=== PATIENT | female | born 1955 | race Caucasian/White ===

== ENCOUNTER 2018-12-23 11:54 | Inpatient (IN) ==
--- NOTE | 2018-12-23 09:09 | Discharge Summary ---
<Joshua Roberson M - Last Filed: 12/23/18 09:07> Date of Encounter: 12/23/18 - Discharge Diagnosis (1) Diabetes mellitus Priority: Secondary Status: Chronic Qualifiers: Diabetes mellitus type: type 2 Diabetes mellitus watermaster insulin use: with mcfp use Diabetes mellitus complication status: with other specified complication Qualified Code(s): E11.69 - Type 2 diabetes mellitus with other specified complication; Z79.4 - skilled nursing (current) use of insulin (2) GERD (gastroesophageal reflux disease) Priority: Secondary Status: Chronic Qualifiers: Esophagitis presence: esophagitis presence not specified Qualified Code(s): K21.9 - Gastro-esophageal reflux disease without esophagitis (3) Arthritis of right hip Priority: Primary Status: Chronic (4) Status post right hip replacement Priority: Primary Status: Acute - Hospital Course Hospital course: Ms. Braun is a 63 year old female - Time Spent with Patient Total time spent providing and/or coordinating discharge services: - Discharge Medications Prescriptions: New Aspirin Enteric Coated [Aspirin EC] 325 mg PO DAILY 10 Days #20 tablet. Docusate [Colace] 100 mg PO BID 5 Days #10 capsule OxyCODONE Immed Rel [Roxicodone 5 MG] 5 mg PO Q6HR PRN 5 Days #20 tablet PRN Reason: Severe Pain Continued Ergocalciferol (VITAMIN D2) [Vitamin D2] 50,000 unit PO QWEEK Calcium Carbonate [Calcium] 600 mg PO DAILY Omeprazole [PriLOSEC] 20 mg PO DAILY Meloxicam 15 mg PO DAILY Insulin Glargine [Lantus] 35 unit SQ BID Simvastatin [Zocor] 20 mg PO HS Metformin HCl 1,000 mg PO BID Gabapentin 600 mg PO TID Paroxetine HCl [Paroxetine Cr] 37.5 mg PO DAILY Multivitamin [One Daily Multivitamin] 1 tab PO DAILY Discontinued Aspirin [Lo-Dose Aspirin EC] 81 mg PO DAILY Home Medications: Aspirin Enteric Coated [Aspirin EC] 325 mg PO DAILY 10 Days #20 tablet. 12/23/18 [Rx] Calcium Carbonate [Calcium] 600 mg PO DAILY 12/23/18 [History] Docusate [Colace] 100 mg PO BID 5 Days #10 capsule 12/23/18 [Rx] Ergocalciferol (VITAMIN D2) [Vitamin D2] 50,000 unit PO QWEEK 12/23/18 [History] Gabapentin 600 mg PO TID 12/23/18 [History] Insulin Glargine [Lantus] 35 unit SQ BID 12/23/18 [History] Meloxicam 15 mg PO DAILY 12/23/18 [History] Metformin HCl 1,000 mg PO BID 12/23/18 [History] Multivitamin [One Daily Multivitamin] 1 tab PO DAILY 12/23/18 [History] Omeprazole [PriLOSEC] 20 mg PO DAILY 12/23/18 [History] OxyCODONE Immed Rel [Roxicodone 5 MG] 5 mg PO Q6HR PRN 5 Days #20 tablet 12/23/18 [Rx] Paroxetine HCl [Paroxetine Cr] 37.5 mg PO DAILY 12/23/18 [History] Simvastatin [Zocor] 20 mg PO HS 12/23/18 [History] Allergies/Adverse Reactions: Allergy/AdvReac Type Severity Reaction Status Date / Time No Known Allergies Allergy Verified 12/23/18 13:05 Primary care physician: Isac Castillo - Patient Status Disposition: Home Health Service Condition: Good - Discharge Instructions Follow Up With: Eileen Galvez PAC [Physician Asphalt Raker] - 12/30/18 10:15 am Isac Castillo DO [Primary Care Provider] - Additional Instructions: Discharge Instructions: Total Hip Replacement Please call [facility] ([phone]), your Primary Care Physician, or report to the Emergency Room if you have any of the following symptoms: Nausea, vomiting, fever greater that 101.5, swelling, chest pain, shortness of breath, increased pain/redness/drainage/odor for your incision site, numbness/tingling, or any other concerning symptoms. ACTIVITY:Weight-bearing as tolerated for 8 weeks with hip dislocation precautions that physical therapy taught you. You may progress as tolerated under the guidance of your physical therapist. You do not need to sleep with a pillow between your legs. You can also seep on the operative side or on your stomach. Incentive Spirometer 10 times an hour. MEDICATIONS: Upon discharge resume your home medications. Take all the medications as prescribed. Take a stool softener if taking narcotic pain medications. Stool softeners are only effective if you drink enough fluids. Drink 6-8 glass of water or fluids a day, unless this is not allowed for another health problem. Despite using stool softeners, if you haven't had a bowel movement in 3 days, please switch to a gentle laxative. Gentle laxatives are sold over the counter. You should have a bowel movement within 24 hours, if not call the office. You will be discharged from the hospital with a prescription for pain medication. You are encouraged to decrease the use of narcotic pain medication as tolerated. Should you require a refill, please call the office. [facility] prescribes narcotic pain medication for only 4-6 weeks after surgery. If you require pain medication beyond this time period, you may be referred to your Primary Care Physician or to the Pain Clinic for further evaluation. Plan ahead for refills on pain medication as many narcotics either need to be picked up at the office or mailed. It is best to call 48-72 hours in advance of needing a prescription refill so you don't run out of medication. To help control the post-operative pain, you may take NSAIDs (Aleve,Advil, Motrin, ibuprofen, naprosyn) or Tylenol as prescribed on the bottle in addition to the pain medication. ANTICOAGULATION (blood thinners): Continue your Aspirin, Lovenox or Coumadin as prescribed to help prevent a blood clot in the leg or in the lungs. As long as your incision remains dry and you tolerate the NSAIDs (Aleve, Advil, Motrin, Ibuprofen, Naprosyn), it is OK to use the NSAIDS while you are taking your anticoagulation medication. Should your incision start to drain, stop the NSAID and contact our office. Common symptoms of blood clot in the legs include: localized pain, swelling, calf tenderness, redness or discoloration of the skin. Blood clot in the lung symptoms include: shortness of breath, rapid pulse, sweating, and chest pain that worsens with deep breathing, coughing up blood, lightheadedness, feelings of anxiety. If you experience any of these symptoms notify your physician immediately, go to the emergency room, or if having trouble breathing, call 911. WOUND CARE: Leave the dressing on for 7 to 10days. You may change the dressing if it is saturated greater than 50%. Do not get the dressing wet at anytime. Wash your hands with antibacterial soap, rinse and dry prior to any wound care. If you have anna the visiting nurse or rehab facility can remove the stapes 10-14 days after surgery and place steri-strips across the wound. Leave the steri-strips in place until they fall off on their own. You may let water from the shower run on top of the steri-strips. If you do not have a visiting nurse or rehab facility, you will need to return to the office at 10-14 days for the anna to be removed. If you have itching or redness around the dressing call the office. FOLLOW-UP: Please follow up with your surgeon in the orthopedic clinic in 6 weeks from the day of surgery. If you have anna that need to be removed, you will need to come back to the office in 10-14 days from the day of surgery. <Eileen Schmidt - Last Filed: 12/23/18 10:57> Date of Encounter: 12/23/18 - Discharge Diagnosis (1) Status post right hip replacement Priority: Primary Status: Acute (2) Arthritis of right hip Priority: Primary Status: Chronic (3) Obesity (BMI 30.0-34.9) Priority: Secondary Status: Chronic (4) DM2 (diabetes mellitus, type 2) Priority: Secondary Status: Chronic Qualifiers: Diabetes mellitus watermaster insulin use: with mcfp use Diabetes [facility] complication status: without complication Qualified Code(s): E11.9 - Type 2 diabetes mellitus without complications; Z79.4 - intermission coordinator (current) use of insulin (5) Hyperlipidemia Priority: Secondary Status: Chronic Qualifiers: Hyperlipidemia type: unspecified Qualified Code(s): E78.5 - Hyperlipidemia, unspecified (6) GERD (gastroesophageal reflux disease) Priority: Secondary Status: Chronic Qualifiers: Esophagitis presence: esophagitis presence not specified Qualified Code(s): K21.9 - Gastro-esophageal reflux disease without esophagitis - Hospital Course Hospital course: Ms. Braun is a 63 year old female status post right THR 12/23/18 with medical his tory of DM, GERD, HLD, obesity. - Time Spent with Patient Total time spent providing and/or coordinating discharge services: Date of admission: 12/23/18 Primary care physician: Isac Castillo <Eileen Galvez - Last Filed: 12/27/18 11:04> Orders not resulted at time of discharge: Pending orders 12/23/18 14:58 Surgical Pathology [PTH] Routine Date of Encounter: 12/27/18 Time of Encounter: 08:45 - Discharge Diagnosis (1) Status post right hip replacement Priority: Primary Status: Acute (2) Arthritis of right hip Priority: Primary Status: Chronic (3) DM2 (diabetes mellitus, type 2) Priority: Secondary Status: Chronic Qualifiers: Diabetes mellitus watermaster insulin use: with watermaster use Diabetes mellitus complication status: with other specified complication Qualified Code(s): E11.69 - Type 2 diabetes mellitus with other specified complication; Z79.4 - intermission coordinator (current) use of insulin (4) GERD (gastroesophageal reflux disease) Priority: Secondary Status: Chronic Qualifiers: Esophagitis presence: esophagitis presence not specified Qualified Code(s): K21.9 - Gastro-esophageal reflux disease without esophagitis (5) Hyperlipidemia Priority: Secondary Status: Chronic Qualifiers: Hyperlipidemia type: unspecified Qualified Code(s): E78.5 - Hyperlipidemia, unspecified (6) Obesity (BMI 30.0-34.9) Status: Chronic (7) Acute blood loss anemia Priority: Secondary Status: Acute - Hospital Course Hospital course: Ms. Braun is a 63 year old female POD#4 s/p Right Total Hip Replacment robotic- assisted, removal of hardware right hip [arthritis] 12/23/18 A&Ox3 Dressing and incision c/d/i No calf tenderness, erythema, or warmth. Neurovascularly intact b/l LE. Labwork, vitals, and medications reviewed. Pain control: Adequate Participating in therapy. All questions and concerns addressed. Educated on use of incentive spirometer, ambulation, and hydration. Patient educated on post-operative restrictions and care. Patient had an uneventful postoperative course. Progressed from intravenous analgesic needs to oral analgesic needs only. Remained neurovascularly intact and mobilized satisfactorily. All radiographic studies were satisfactory. Patient course and disposition was followed by Dr. Beck. Patient is discharged to home with home health therapy as plan for rehabilitation and outpatient orthopedic follow up has been arranged. - Time Spent with Patient Total time spent providing and/or coordinating discharge services: Date of admission: 12/23/18 17:28 Primary care physician: Isac Castillo Consults: 12/23/18 17:29 Consult to Nurse Navigator [CONS] Routine Comment: ortho navigator Consult to Nutrition [CONS] Routine Comment: Consulting Provider: NUTRITION Reason for Dietary Consult: Other Other:: Proper nutrition to facilitate wound healing Consult to Occupational Therapy [CONS] Routine Comment: Evaluate, develop and implement POC Reason for Consult: total hip replacement Does patient have active BEDREST order?: No Is patient medically & hemodynamically stable?: Yes Consult to Physical Therapy [CONS] Routine Comment: Evaluate, develop and implement POC Reason for Consult: total hip replacement Does patient have active BEDREST order?: No Is patient medically & hemodynamically stable?: Yes Consult to Crating And Moving Estimator [CONS] Routine Reason for SW Consult: post op joint replacement RT Post Op Consult [CONS] Routine Discharging clinician: Hollis Beck Anticipated date of discharge: 12/27/18 Labs on day of discharge: Labs from last 24 hours 12/26/18 12/26/18 12/26/18 19:46 16:26 11:44 POC Glucose 116 H 136 H 247 H 12/25/18 16:39 POC Glucose 194 H - Impressions ITS Impressions Hip X-Ray 12/23/18 01:00 IMPRESSION: Postsurgical changes from right hip arthroplasty. D/ / Dale Mills / Dale Mills Interpreting Provider: Dale Mills - Patient Status Functional capacity at discharge: uses cane/walker Overall status at discharge: patient is progressing back to baseline - Diet and Activity Activity: as per physical therapy Diet: advance to your usual diet
--- NOTE | 2018-12-23 11:01 | Physician Discharge Referral ---
<Eileen Schmidt - Last Filed: 12/23/18 11:00> Home Health/Hosp Referral Info Transfer to: Home Health Attending Provider: Dr. Beck - Diagnosis (1) Status post right hip replacement Priority: Primary Status: Acute (2) Arthritis of right hip Priority: Primary Status: Chronic (3) Obesity (BMI 30.0-34.9) Priority: Secondary Status: Chronic (4) DM2 (diabetes mellitus, type 2) Priority: Secondary Status: Chronic (5) Hyperlipidemia Priority: Secondary Status: Chronic (6) GERD (gastroesophageal reflux disease) Priority: Secondary Status: Chronic - Respiratory Orders None Smoking Cessation: Smoking cessation has been advised. For more information, call the [place] Tobacco Quit Line at 6-243-QAEW-NOW. - Diet/Nutrition Diet/Nutrition Orders: Regular - Activity Activity Orders: Ambulate, Chair, Walker - Services Needed Following services are medically necessary services: Nursing, Home Health Aide, Physical Therapy, Occupational Therapy Home Care Orders: Opsite dressing, leave intact until first post-operative visit. If dressing becomes >50% saturated, contact office, remove dressing and place appropriate dressing in its place. Do not allow for dressing to get wet. Zipline/[place] in place, plan to remove at post-operative day #14-16. Total Joint Precautions x 6 weeks Apply cold therapy wrap 3-6x/day for 20 minutes at a time. Encourage ambulation throughout the day Use Incentive spirometer 10x/hour. Elevate affected extremity above heart as tolerated. Brace: Wear hip abductor brace at night x 6 weeks. - Transfer Medications Home Medications: Aspirin Enteric Coated [Aspirin EC] 325 mg PO DAILY 10 Days #20 tablet. 12/23/18 [Rx] Calcium Carbonate [Calcium] 600 mg PO DAILY 12/23/18 [History] Docusate [Colace] 100 mg PO BID 5 Days #10 capsule 12/23/18 [Rx] Ergocalciferol (VITAMIN D2) [Vitamin D2] 50,000 unit PO QWEEK 12/23/18 [History] Gabapentin 600 mg PO TID 12/23/18 [History] Insulin Glargine [Lantus] 35 unit SQ BID 12/23/18 [History] Meloxicam 15 mg PO DAILY 12/23/18 [History] Metformin HCl 1,000 mg PO BID 12/23/18 [History] Multivitamin [One Daily Multivitamin] 1 tab PO DAILY 12/23/18 [History] Omeprazole [PriLOSEC] 20 mg PO DAILY 12/23/18 [History] OxyCODONE Immed Rel [Roxicodone 5 MG] 5 mg PO Q6HR PRN 5 Days #20 tablet 12/23/18 [Rx] Paroxetine HCl [Paroxetine Cr] 37.5 mg PO DAILY 12/23/18 [History] Simvastatin [Zocor] 20 mg PO HS 12/23/18 [History] Allergies/Adverse Reactions: Allergy/AdvReac Type Severity Reaction Status Date / Time No Known Allergies Allergy Verified 12/23/18 13:05 Certification: Further, I certify that my clinical findings support that this patient is homebound (i.e. absences from home require considerable and taxing effort and are for medical reasons or confucianism services or infrequently or short duration when for other reasons) because: Homebound Reason: Post-surgery restriction and or conditions limit ability to leave home Attestation: My signature below is to certify that this patient is under my care and that I, or nurse practitioner, or a physician furniture removalist's assistant working with me, has a [id number] encounter with this patient. <Eileen Galvez E - Last Filed: 12/27/18 09:53> Home Health/Hosp Referral Info Transfer to: Home Health - Diagnosis (1) Status post right hip replacement Priority: Primary Status: Acute (2) Arthritis of right hip Priority: Primary Status: Chronic (3) DM2 (diabetes mellitus, type 2) Priority: Secondary Status: Chronic (4) GERD (gastroesophageal reflux disease) Priority: Secondary Status: Chronic (5) Hyperlipidemia Priority: Secondary Status: Chronic (6) Obesity (BMI 30.0-34.9) Priority: Secondary Status: Chronic (7) Acute blood loss anemia Priority: Secondary Status: Acute - Respiratory Orders Smoking Cessation: Smoking cessation has been advised. For more information, call the [place] Tobacco Quit Line at 8-933-UVRO-NOW. - Diet/Nutrition Diet/Nutrition Orders: Regular - Activity Activity Orders: Ambulate, Chair, Walker - Services Needed Following services are medically necessary services: Nursing, Home Health Aide, Physical Therapy, Occupational Therapy Home Care Orders: Opsite dressing, leave intact until first post-operative visit. If dressing becomes >50% saturated, contact office, remove dressing and place appropriate dressing in its place. Do not allow for dressing to get wet. Zipline/Joaquin in place, plan to remove at post-operative day #14-16. Total Joint Precautions x 6 weeks Apply cold therapy wrap 3-6x/day for 20 minutes at a time. Encourage ambulation throughout the day Use Incentive spirometer 10x/hour. Elevate affected extremity above heart as tolerated. Brace: Wear hip abductor brace at night x 6 weeks. Certification: Further, I certify that my clinical findings support that this patient is homebound (i.e. absences from home require considerable and taxing effort and are for medical reasons or confucianism services or infrequently or short duration when for other reasons) because: Homebound Reason: Post-surgery restriction and or conditions limit ability to leave home Attestation: My signature below is to certify that this patient is under my care and that I, or nurse practitioner, or a physician furniture removalist's assistant working with me, has a [id number] encounter with this patient.
--- NOTE | 2018-12-23 12:12 | History & Physical Report ---
Date of Encounter: 12/23/18 Time of Encounter: 12:11 24 Hour HP Update - Instructions Instructions: If the History and Physical is less than 30 days old and was completed prior to A.M. admission and or procedure and has NOT been updated on calendar day of procedure please complete this update prior to performing procedure. - Update Patient reports changes in Medical Condition: No Changes in examination, assessment, or condition: No Changes in Medication: No Preop tests/diagnostics Reviewed: Yes Surgery Remains Indicated: Yes Consent for Planned Operative Procedure(s) Verified: Yes - Pre-Operative Checklist Preoperative Checklist Indicated: No Prophylactic Antibiotic Ordered: Yes Is VTE Prophylaxis Indicated?: Yes
[2018-12-23] MEDS ORDERED: CeFAZolin Syr 2,000MG/20 ML 2,000 MG/20 ML SYRINGE IVPB ONE (12:22)
[2018-12-23] MEDS ORDERED: Ringers Solution, Lactated 1,000 ML IVC SCH ×2 (12:30→17:29)
[2018-12-23] MEDS ORDERED: Gabapentin 300 MG CAPSULE PO ONE (12:49)
[2018-12-23] MEDS ORDERED: Celecoxib 200 MG CAPSULE PO SCH (12:49)
--- NOTE | 2018-12-23 12:52 | Anesthesia Evaluation PreOp ---
Date of Encounter: 12/23/18 Time of Encounter: 12:55 - Past History Planned Operation: Total right hip robotic arthroplasty, right hardware re Cardiac History: HTN, Hyperlipidemia Pulmonary History: Denies Any Significant HX USED CAR MANAGER History: Denies Any Significant HX Other Medical History: Diabetes Type II (insulin dependent), GERD Anesthesia History: No Prior Anesthetic Complications Alcohol Use: none Drug use: none Medications and Allergies Insulin Glargine [Lantus] 25 - 30 unit SQ BID 08/14/15 [History] Simvastatin [Zocor] 20 mg PO HS 08/14/15 [History] Aspirin 81 mg PO DAILY 01/15/16 [History] Metformin HCl [Glucophage] 1,000 mg PO BID 01/15/16 [History] Omeprazole [PriLOSEC] 20 mg PO BID 01/15/16 [History] Paroxetine HCl [Paxil Cr] 25 mg PO DAILY 01/15/16 [History] Ibuprofen [Motrin] 600 mg PO Q6HR PRN #40 tab 01/17/16 [Rx] OxyCODONE/APAP 5/325 [Percocet 5/325 MG] 1 each PO Q4H PRN #40 tablet 01/17/16 [Rx] Aspirin Enteric Coated [Aspirin EC] 325 mg PO BID #20 tablet. 12/23/18 [Rx] Aspirin Enteric Coated [Aspirin EC] 325 mg PO DAILY 10 Days #20 tablet. 12/23/18 [Rx] Docusate [Colace] 100 mg PO BID 5 Days #10 capsule 12/23/18 [Rx] OxyCODONE Immed Rel [Roxicodone 5 MG] 5 mg PO Q6HR PRN 5 Days #20 tablet 12/23/18 [Rx] OxyCODONE Immed Rel [Roxicodone 5 MG] 5 mg PO Q6HR PRN 5 Days #20 tablet 12/23/18 [Rx] Allergy/AdvReac Type Severity Reaction Status Date / Time No Known Allergies Allergy Verified 01/15/16 09:58 - Meds/Allergy Pre-op Review Medications Reviewed: Yes Allergies Reviewed: Yes Beta Blockers on Current Med List: No Anesthesia Results - Labs Laboratory Tests 12/08/18 12/08/18 12/08/18 18:39 18:39 18:39 WBC 9.2 Hgb 12.7 Hct 39.3 Plt Count 319 PT INR APTT Sodium 138 Potassium 4.0 Chloride 101 Carbon Dioxide 26 BUN 22 Creatinine 0.76 Est GFR ( Amer) > 60 Est GFR (Non-Af Amer) > 60 BUN/Creatinine Ratio 29 H Glucose 167 H Est Mean Plasma Glucose 166 Hemoglobin A1c 7.4 H Calculated Osmolality 293 Calcium 9.7 12/08/18 18:39 WBC Hgb Hct Plt Count PT 9.8 INR 0.9 APTT 31.4 Sodium Potassium Chloride Carbon Dioxide BUN Creatinine Est GFR ( Amer) Est GFR (Non-Af Amer) BUN/Creatinine Ratio Glucose Est Mean Plasma Glucose Hemoglobin A1c Calculated Osmolality Calcium - Imaging EKG: report reviewed, image reviewed (SINUS RHYTHM LOW QRS VOLTAGE IN PRECORDIAL LEADS POSSIBLE ANTERIOR MYOCARDIAL INFARCTION, PROBABLY OLD) Anesthesia Exam Last Vital Signs Temp 98.3 F 12/23/18 12:27 Pulse 86 12/23/18 12:27 Resp 18 12/23/18 12:27 BP 125/79 12/23/18 12:27 Pulse Ox 100 12/23/18 12:27 Weight: 87 kg NPO (# of Hours): > 8 hrs - HEENT Pupil (Motor): Pupils equal, EOMI Mallampati: III Oral Opening: Greater than 3 - USED CAR MANAGER LOC: Oriented - Cardiac Rhythm: Regular Murmur: None - Pulmonary Breath Sounds: bilateral Clear Respiratory Effort: Symmetrical Anesthesia Assess/Plan ASA Score: 2 Level of consciousness: Cooperative Anesthetic Plan: MAC, Spinal Monitoring Plan: Standard Monitors Recovery Plan: PACU
[2018-12-23] MEDS ORDERED: Celecoxib 200 MG CAPSULE PO ONE (13:00)
[2018-12-23] MEDS ORDERED: *HR* OxyCODONE ER (12 HR) 10 MG TABLET PO ONE (13:00)
[2018-12-23] MEDS ORDERED: *HR* Midazolam HCl 2 MG/2 ML VIAL ONE (13:09)
[2018-12-23] MEDS ORDERED: *HR* FentaNYL (PF) 100 MCG/2 ML VIAL ONE (13:09)
[2018-12-23] MEDS ORDERED: *HR* Propofol 200 MG/20 ML VIAL IVP ONE ×2 (13:09→14:55)
[2018-12-23] MEDS ORDERED: Lidocaine -MPF 2% 2 ML VIAL ONE (13:09)
[2018-12-23] MEDS ORDERED: Propofol 500 MG/50 ML INFUS..BTL ONE (13:10)
[2018-12-23] MEDS ORDERED: *HR* PHENYLEPHRINE 1,000 MCG/10 ML SYRINGE IVP ONE (13:10)
[2018-12-23] MEDS ORDERED: Ethanol\\Acetic Acid\\Na Ace\\Ben 1,000 ML IRRIG.SOLN IR ONE (13:39)
--- NOTE | 2018-12-23 13:45 | Anesthesia Procedures ---
Date of Encounter: 12/23/18 Time of Encounter: 13:43 Procedures: Anesthesia - Epidural/Spinal Patient ID/Chart reviewed: Yes Patient examined: Yes Supplemental Oxygen: None/Room Air Sedation: Versed (mg): 1 Sedation: Fentanyl (mcg): 50 Site Prep: 0.5% Chlorhexidine/Alcohol Patient position: upright Local Anesthetic: Lidocaine 1% Amount of Local Anesthetic used: 7 Interspace Used: L4-L5 Blood: No CSF: Yes Paresthesia: No Spinal Needle Gauge: 25 Spinal Dose: 2.5mL of 0.5% isobaric bupivicaine Procedure: Multiple unsuccessful attempts by GIBRAN Pena under close supervision. Successful on 1st attempt by Tiago Plasencia CRNA. Patient tolerated procedure well; VSS Vitals + FHT's: see holding vital signs notes
[2018-12-23] MEDS ORDERED: Tranexamic Acid 1,000 MG/10 ML VIAL ONE (13:55)
[2018-12-23] MEDS ORDERED: EPHEDrine 50 MG/ML VIAL ONE (15:07)
--- NOTE | 2018-12-23 15:11 | Orthopedic Operative Note ---
Date of procedure: 12/23/18 Pre-op diagnosis: Right hip arthritis Post-op diagnosis: same Procedure: Procedure: Right Total Hip Replacment robotic-assisted, removal of hardware right hip Estimated blood loss: 300 cc Hardware: Metal and polyethylene replacement. [place] DM Cup:52 cup Femoral size 9stem Head: 8 head with Salome Procedural Notes: Grade 4 arthritic changes femoral head acetabular socket, procedure performed with robotic assistance. 19 mm short operative versus nonoperative leg is measured by preoperative CT scan. Operative procedure: The patient was brought to the operating room and placed on the operating room t able. After general anesthesia was administered the patient was placed in the lateral decubitus position with the operative leg up. All pressure points were padded appropriately and the head was stabilized in the neutral position. The operative extremity was prepped and draped in the sterile surgical fashion patient received IV antibiotic prior to skin incision. 3 Steinmann pins were placed in the iliac crest 3 cm proximal to the anterior superior iliac spine this was for the robotic-assisted sensor. This was done through a small 2 cm incision. A standard posterior approach is made to the operative hip, the incision was made through the skin and subcutaneous tissue hemostasis was obtained with Bovie cautery. Using careful sharp dissection the fascia was identified and incised exposing the external rotators. The incision was taken down distally along the axis of the femur, the fascia was split distally, as well as the fascia ranulfo the vastus lateralis, the muscle was elevated up off the lateral femur exposing the plate, 3 screws the plate and the dynamic hip screw were removed. Attention was then turned back to the total hip replacement. The greater trochanter was marked, and length was measured at this time utilizing robotic assistance. The external rotators were released off the greater trochanter and tagged with #2 FiberWire suture. The capsule was T'd open and the hip was brought into internal rotation. Patient noted to have grade 4 arthritic changes femoral head. The femoral neck cut was made at the appropriate level roughly 15 mm proximal to the lesser tro chanter aced on preoperative templating. An anterior capsulotomy was performed for the anterior retractor. Soft tissues removed from the acetabulum. Patient noted to have grade 4 arthritic changes acetabulum. The acetabulum reference point was confirmed. The acetabulum was then mapped with robotic assistance. Based on the preoperative plan the acetabulum was reamed in one step with a 52 reamer. The 52 acetabulum was impacted with robotic assistance and 40 degrees of abduction and 18 degrees of anteversion. The hip was brought back in to internal rotation and prepared with the box cutt er followed by the canal finder followed by the reaming process to a size 9/10 broaching process in 20 degrees anteversion. It was broached up to the appropriate size 9 Trial reduction revealed leg lengths close to normal. The femoral implant was impacted in place in 20 degrees of anteversion. Trial reduction found the hip to be stable with 8 head and Salome. The trials were removed and the real implants were impacted in place. The hip was reduced, patient had robotic confirmed leg length of 3 mm shorter than the contralateral side. The hip had excellent stability with forward flexion to 90 degrees adduction of 30 degrees and internal rotation of 60 degrees. The hip had no shuck. The hip sat with an antibacterial solution. It was irrigated out with 2 L of pulse irrigation. The Steinmann pins were removed. The hip was closed by the PA. The deep tissue was irrigated and closed deep with #1 PDS suture superficially with 0 PDS suture and skin was closed withskin anna and zip tie. The patient was placed in a sterile dressing and abduction pillow. The patient was extubated and transferred to the recovery room in stable condition. Anesthesia: spinal Surgeon: Hollis Beck Was there an bricklayer's assistant present: Yes Help Desk Technician: Joshua Roberson Estimated blood loss (cc): 300 Condition: stable Disposition: PACU
[2018-12-23 16:30] LABS: Hematocrit 34.6 % (35.3-44.9); Hemoglobin 11.1 g/dL (11.5-15.4)
[2018-12-23] MEDS ORDERED: *HR* OxyCODONE Immed Rel 5 MG TABLET PO ONE (16:30)
--- NOTE | 2018-12-23 17:05 | Anesthesia Evaluation Post Op ---
Date of Encounter: 12/23/18 Time of Encounter: 17:04 - Vital Signs Vital Signs: Vital Signs Temp Pulse Resp BP Pulse Ox 12/23/18 16:54 90 14 136/75 99 12/23/18 16:44 98.5 F 89 18 138/75 99 12/23/18 16:34 92 18 133/77 99 12/23/18 16:24 87 18 133/68 97 12/23/18 16:14 97.6 F 89 18 145/76 97 12/23/18 16:04 90 16 106/68 96 12/23/18 15:54 89 16 115/61 97 12/23/18 15:44 97.5 F L 96 20 123/67 99 12/23/18 13:51 77 103/72 98 12/23/18 13:47 79 112/65 98 12/23/18 13:40 89 109/72 99 12/23/18 13:17 91 158/85 98 12/23/18 12:27 98.3 F 86 18 125/79 100 Intake and Output 12/23/18 12/23/18 12/23/18 07:59 15:59 23:59 Intake Total 20 / 20 Output Total 300 / 300 Balance -280 / -280 Intake: IV Fluids 20 / 20 Ancef Syringe 2,000 MG/20 ML 2, 20 / 20 000 mg In 20 ml @ 200 mls/hr IVPB PREOP ONE Rx#:[id number] Output: Estimated Blood Loss 300 / 300 Other: Weight 86.636 kg Blood Glucose* 153 Patient Weight 12/23/18 23:59 Weight 86.636 kg - Lungs Lungs: Clear Ascult./Percussion - Airway Airway: Non-obstructed - Cardiovascular Regular Rate - Mental Status Mental Status: Alert & Oriented, Answers Appropriately - Pain Pain Scale: 6 Pain Scale used: Numeric (1 - 10) - Nausea Vomiting Nausea Vomiting: Not Present - Hydration Hydration: Tolerates oral liquids - Discharge PostOp Status: Transfer Patient to floor
[2018-12-23] MEDS ORDERED: *HR* Dextrose 50 % in Water (Syg) 50 ML SYRINGE IVP PRN (17:29)
[2018-12-23] MEDS ORDERED: Ondansetron 4 MG/2 ML VIAL IVP PRN (17:29)
[2018-12-23] MEDS ORDERED: Insulin LISPRO 300 UNITS/3 ML VIAL SQ SCH (17:29)
[2018-12-23] MEDS ORDERED: traMADol 50 MG TABLET PO PRN (17:29)
[2018-12-23] MEDS ORDERED: Sennosides 8.6 MG TABLET PO PRN (17:29)
[2018-12-23] MEDS ORDERED: *HR* Promethazine 25 MG/ML VIAL IVP PRN (17:29)
[2018-12-23] MEDS ORDERED: D5% in Water 1,000 ML IVC PRN (17:29)
[2018-12-23] MEDS ORDERED: MOM Conc 10 ML UD.LIQ PO PRN (17:29)
[2018-12-23] MEDS ORDERED: HYDROcodone BIT/Homatropine 5 MG TABLET PO PRN (17:29)
[2018-12-23] MEDS ORDERED: Temazepam 15 MG CAPSULE PO PRN (17:29)
[2018-12-23] MEDS ORDERED: Naloxone 0.4 MG/ML INJ IVP PRN (17:29)
[2018-12-23] MEDS ORDERED: Dextrose Gel 15 GM/37.5 ML TUBE PO PRN ×2 (17:29)
[2018-12-23] MEDS ORDERED: *HR* Enoxaparin 30 MG/0.3 ML SYRINGE SQ SCH (18:00)
[2018-12-23] MEDS: Ascorbic Acid 500 MG TABLET PO SCH (18:44)
[2018-12-23] MEDS: *HR* Enoxaparin 30 MG/0.3 ML SYRINGE SQ SCH (18:44)
[2018-12-23] MEDS: Gabapentin 300 MG CAPSULE PO SCH ×2 (18:44→20:59)
[2018-12-23] MEDS: *HR* OxyCODONE Immed Rel 5 MG TABLET PO PRN (20:49)
[2018-12-23] MEDS: *HR* Metformin 500 MG TABLET PO SCH (20:50)
[2018-12-23] MEDS ORDERED: Ergocalciferol (VIT D2) 50,000 UNIT (1.25MG) CAP PO SCH (21:00)
[2018-12-23] MEDS ORDERED: NON-FORMULARY MEDICATION 1 EACH EACH (Insulin Glargine [Lantus] 35 UNIT) SQ SCH (21:00)
[2018-12-23] MEDS: Insulin LISPRO 300 UNITS/3 ML VIAL SQ SCH (21:01)
[2018-12-23] MEDS: Insulin DETEMIR 100 UNIT/ML X5UNITS SQ SCH (21:03)
[2018-12-24] MEDS: *HR* OxyCODONE Immed Rel 5 MG TABLET PO PRN ×4 (01:37→21:50)
[2018-12-24] MEDS ORDERED: Albuterol 2.5 MG/3 ML NEBULIZER IH ONE (03:13)
[2018-12-24 05:23] LABS: Basophils % 0.4 %; Eosinophils # 0.1 K/mcL (0.0-0.6); Eosinophils % 0.8 %; Hematocrit 31.9 % (35.3-44.9); Hemoglobin 10.3 g/dL (11.5-15.4); Immature Granulocytes % 0.3 % (0-4); Lymphocytes # 2.1 K/mcL (0.6-4.6); Lymphocytes % 22.7 %; Mean Corpuscular HGB Conc 32.3 g/dL (31.6-35.5); Mean Corpuscular Hemoglobin 28.7 pg (28.0-33.3); Mean Corpuscular Volume 88.9 fL (83.0-100.0); Mean Platelet Volume 9.5 fL (9.4-12.4); Monocytes # 0.6 K/mcL (0.0-1.3); Monocytes % 6.9 %; Neutrophils # 6.2 K/mcL (1.6-8.9); Platelet Count 257 K/mcL (140-400); Red Blood Count 3.59 M/mcL (3.82-4.97); Segmented Neutrophils % 68.9 %
[2018-12-24 05:43] LABS: BUN/Creatinine Ratio 19 (6-26); Blood Urea Nitrogen 12 mg/dL (8-23); Calcium 8.6 mg/dL (8.6-10.3); Carbon Dioxide 27 mEq/L (23-29); Chloride 98 mEq/L (98-107); Glucose 230 mg/dL (70-105); Osmolality,Calculated 279 (280-300); Potassium 4.3 mEq/L (3.5-5.1); Sodium 131 mEq/L (136-145); eGFR For African Americans > 60 (> 60); eGFR For Non-African Americans > 60 (> 60)
[2018-12-24] MEDS: *HR* Enoxaparin 30 MG/0.3 ML SYRINGE SQ SCH ×2 (06:00→16:38)
--- NOTE | 2018-12-24 06:46 | Orthopedics Progress Note ---
Date of Encounter: 12/24/18 Time of Encounter: 06:46 Subjective Interval history: Patient was seen this morning doing well without complaints. Afebrile vital signs stable. Operative extremity: Neurovascularly intact Dressing clean dry and intact Calves nontender Assessment and plan: Continue with postoperative care Hematocrit 31 Objective Vital signs: Vital Signs Temp Pulse Pulse Resp BP Pulse Ox 12/24/18 06:13 90 12/24/18 04:19 98.6 F 90 17 124/74 97 12/24/18 03:36 16 96 12/24/18 01:43 92 12/23/18 23:17 98.7 F 92 16 120/71 97 12/23/18 21:29 84 12/23/18 19:42 98.0 F 84 17 124/74 97 12/23/18 18:04 97.2 F L 88 16 138/82 98 12/23/18 17:14 98.2 F 92 16 134/69 99 12/23/18 17:04 88 16 132/70 97 12/23/18 16:54 90 14 136/75 99 12/23/18 16:44 98.5 F 89 18 138/75 99 12/23/18 16:34 92 18 133/77 99 12/23/18 16:24 87 18 133/68 97 12/23/18 16:14 97.6 F 89 18 145/76 97 12/23/18 16:04 90 16 106/68 96 12/23/18 15:54 89 16 115/61 97 12/23/18 15:44 97.5 F L 96 20 123/67 99 12/23/18 13:51 77 103/72 98 12/23/18 13:47 79 112/65 98 12/23/18 13:40 89 109/72 99 12/23/18 13:17 91 158/85 98 12/23/18 12:27 98.3 F 86 18 125/79 100 Intake and Output 12/23/18 12/23/18 12/24/18 15:59 23:59 07:59 Intake Total 20 / 770 750 / 770 300 / 300 Output Total 300 / 300 Balance -280 / 470 750 / 470 300 / 300 Intake: IV Fluids 20 / 120 100 / 120 Ancef Syringe 2,000 MG/20 ML 2, 20 / 20 000 mg In 20 ml @ 200 mls/hr IVPB PREOP ONE Rx#:[id number] Ancef 2,000 MG In 0.9 % Sodium 100 / 100 Chloride 100 ML @ 200 mls/hr IVPB Q8H [facility] Rx#:[id number] Oral 650 / 650 300 / 300 Output: Estimated Blood Loss 300 / 300 Other: # Voids 1 1 Weight 86.636 kg 86.7 kg Blood Glucose* 153 195 Patient Weight 12/24/18 23:59 Weight 86.7 kg - Labs CBC & BMP: 12/24/18 04:51 12/24/18 04:51 Labs: Abnormal lab results RBC 3.59 M/mcL (3.82-4.97) L 12/24/18 04:51 Hgb 10.3 g/dL (11.5-15.4) L 12/24/18 04:51 Hct 31.9 % (35.3-44.9) L 12/24/18 04:51 Sodium 131 mEq/L (136-145) L 12/24/18 04:51 Glucose 230 mg/dL (70-105) H 12/24/18 04:51 POC Glucose 204 mg/dL (70-99) H 12/23/18 12:25 Calculated Osmolality 279 (280-300) L 12/24/18 04:51 Consult Discharge Plan - Plan Referrals: Isac Castillo DO [Primary Care Provider] -
[2018-12-24] MEDS: Gabapentin 300 MG CAPSULE PO SCH ×3 (07:57→21:27)
[2018-12-24] MEDS: Multivit/Ca/Min/Fe/FA 1 TAB TABLET PO SCH (07:57)
[2018-12-24] MEDS: Ascorbic Acid 500 MG TABLET PO SCH ×2 (07:58→15:43)
[2018-12-24] MEDS: Insulin LISPRO 300 UNITS/3 ML VIAL SQ SCH ×4 (07:58→20:32)
[2018-12-24] MEDS: Aspirin Enteric Coated 81 MG Tablet PO SCH (07:58)
[2018-12-24] MEDS: *HR* Metformin 500 MG TABLET PO SCH ×2 (07:58→21:28)
[2018-12-24] MEDS: Insulin DETEMIR 100 UNIT/ML X5UNITS SQ SCH ×2 (08:00→21:30)
[2018-12-24] MEDS ORDERED: NON-FORMULARY MEDICATION 1 EACH EACH (Multivitamin [One Daily Multivitamin] 1 TAB) PO SCH (09:00)
--- NOTE | 2018-12-24 13:26 | Event Note ---
Date of Encounter: 12/24/18 Time of Encounter: 11:50 PCR - POD#1 s/p right THR 12/23/18 Patient seen at bedside, without complaints. A&O x 3 There was a rapid response called last night due to syncopal episode. Apparently patient does this frequently and states PCP is unsure of cause. no residual symptoms at this time. Afebrile, vital signs stable. Dressings c/d/i, no calf tenderness to palpation, good dorsiflexion of foot, sensation intact distally. Labs reviewed. H/H - 10.3/31.9 stable, asymptomatic Na 131 - if drops lower then consider supplementation Pain control: inadequate, added lidoderm patch a few hrs ago but patient still has not felt effects, will add tylenol next. oxycodone and gabapentin already on board Participating in PT. All questions and concerns addressed. Educated on use of incentive spirometer. Encouraged ambulation and proper hydration. Patient educated on post-operative restrictions and post-operative care. Assessment and plan: Continue with postoperative care Discharge plan: Pt is recommending ECF at this time, SW to start process however patient is hesitant to this option. Discussed if she makes more progress would consider switching back to original plan of home health.
--- NOTE | 2018-12-24 13:27 | Physician Discharge Referral ---
ExtendedCare Referral Info Transfer To: [facility] Provider in Charge: Dr. Beck - Diagnosis (1) Status post right hip replacement Priority: Primary Status: Acute (2) Arthritis of right hip Priority: Primary Status: Chronic (3) Obesity (BMI 30.0-34.9) Priority: Secondary Status: Chronic (4) DM2 (diabetes mellitus, type 2) Priority: Secondary Status: Chronic (5) Hyperlipidemia Priority: Secondary Status: Chronic (6) GERD (gastroesophageal reflux disease) Priority: Secondary Status: Chronic Expected Duration of Placement: <30 days Prognosis: Good Aware of Diagnosis: Patient Aware of Prognosis: Patient - Transfer Medications Home Medications: Aspirin Enteric Coated [Aspirin EC] 325 mg PO BID #20 tablet. 12/23/18 [Rx] Aspirin Enteric Coated [Aspirin EC] 325 mg PO DAILY 10 Days #20 tablet. 12/23/18 [Rx] Aspirin [Lo-Dose Aspirin EC] 81 mg PO DAILY 12/23/18 [History] Calcium Carbonate [Calcium] 600 mg PO DAILY 12/23/18 [History] Docusate [Colace] 100 mg PO BID 5 Days #10 capsule 12/23/18 [Rx] Ergocalciferol (VITAMIN D2) [Vitamin D2] 50,000 unit PO QWEEK 12/23/18 [History] Gabapentin 600 mg PO TID 12/23/18 [History] Insulin Glargine [Lantus] 35 unit SQ BID 12/23/18 [History] Meloxicam 15 mg PO DAILY 12/23/18 [History] Metformin HCl 1,000 mg PO BID 12/23/18 [History] Multivitamin [One Daily Multivitamin] 1 tab PO DAILY 12/23/18 [History] Omeprazole [PriLOSEC] 20 mg PO DAILY 12/23/18 [History] OxyCODONE Immed Rel [Roxicodone 5 MG] 5 mg PO Q6HR PRN 5 Days #20 tablet 12/23/18 [Rx] OxyCODONE Immed Rel [Roxicodone 5 MG] 5 mg PO Q6HR PRN 5 Days #20 tablet 12/23/18 [Rx] Paroxetine HCl [Paroxetine Cr] 37.5 mg PO DAILY 12/23/18 [History] Simvastatin [Zocor] 20 mg PO HS 12/23/18 [History] Allergies/Adverse Reactions: Allergy/AdvReac Type Severity Reaction Status Date / Time No Known Allergies Allergy Verified 12/23/18 13:05 - Respiratory Orders None Smoking Cessation: Smoking cessation has been advised. For more information, call the [place] Tobacco Quit Line at 6-842-QZNP-NOW. - Ancillary Orders May use pressure relief devices daily prn, May go on ALEXANDER w/family/respon democrat w/meds at nurse discretion PRN, May consult with Dentist, Sr Community Manager, Supervisor [employer] PRN - Advance Directives Code Status: Full Code - Mobility Orders Chair, Ambulate - Rehabiliation Orders Rehab Potential: Good Rehab Orders: ROM Exercises, Evaluation for Physical Therapy, Evaluation for Occupational Therapy Other: Opsite dressing, leave intact until first post-operative visit. If dressing becomes >50% saturated, contact office, remove dressing and place appropriate dressing in its place. Do not allow for dressing to get wet. Zipline/Joaquin in place, plan to remove at post-operative day #14-16. Total Joint Precautions x 6 weeks Apply cold therapy wrap 3-6x/day for 20 minutes at a time. Encourage ambulation throughout the day Use Incentive spirometer 10x/hour. Elevate affected extremity above heart as tolerated. Brace: Wear hip abductor brace at night x 6 weeks. - Treatments Skin tear care topically daily PRN per policy - Diet Orders Regular CERTIFICATION: I certify that the transfer of the above named patient to an Extended Care Facility is necessary for the continuing treatment of the diagnosis listed. The above information is true and accurate reflection of patient's current condition. Confidential - Redisclosure prohibited without a patient's written consent.
[2018-12-24] MEDS ORDERED: tiZANidine 4 MG TABLET PO PRN (14:03)
[2018-12-25 02:31] LABS: Basophils % 0.5 %; Eosinophils # 0.1 K/mcL (0.0-0.6); Eosinophils % 1.1 %; Hematocrit 30.6 % (35.3-44.9); Hemoglobin 9.6 g/dL (11.5-15.4); Immature Granulocytes % 0.5 % (0-4); Lymphocytes # 1.6 K/mcL (0.6-4.6); Lymphocytes % 19.4 %; Mean Corpuscular HGB Conc 31.4 g/dL (31.6-35.5); Mean Corpuscular Hemoglobin 28.1 pg (28.0-33.3); Mean Corpuscular Volume 89.5 fL (83.0-100.0); Mean Platelet Volume 9.9 fL (9.4-12.4); Monocytes # 0.7 K/mcL (0.0-1.3); Monocytes % 8.9 %; Neutrophils # 5.6 K/mcL (1.6-8.9); Platelet Count 247 K/mcL (140-400); Red Blood Count 3.42 M/mcL (3.82-4.97); Red Cell Distribution Width 12.9 % (11.5-14.5); Segmented Neutrophils % 69.6 %; White Blood Count 8.1 K/mcL (4.3-11.1)
[2018-12-25 02:48] LABS: BUN/Creatinine Ratio 20 (6-26); Blood Urea Nitrogen 15 mg/dL (8-23); Calcium 8.9 mg/dL (8.6-10.3); Carbon Dioxide 25 mEq/L (23-29); Chloride 98 mEq/L (98-107); Glucose 241 mg/dL (70-105); Osmolality,Calculated 289 (280-300); Potassium 4.2 mEq/L (3.5-5.1); Sodium 135 mEq/L (136-145); eGFR For African Americans > 60 (> 60); eGFR For Non-African Americans > 60 (> 60)
[2018-12-25] MEDS: *HR* Enoxaparin 30 MG/0.3 ML SYRINGE SQ SCH ×2 (05:34→17:12)
[2018-12-25] MEDS: *HR* OxyCODONE Immed Rel 5 MG TABLET PO PRN ×2 (09:05→20:25)
[2018-12-25] MEDS: Aspirin Enteric Coated 81 MG Tablet PO SCH (09:06)
[2018-12-25] MEDS: *HR* Metformin 500 MG TABLET PO SCH ×2 (09:06→21:25)
[2018-12-25] MEDS: Ascorbic Acid 500 MG TABLET PO SCH ×2 (09:07→17:12)
[2018-12-25] MEDS: Gabapentin 300 MG CAPSULE PO SCH ×3 (09:07→20:25)
[2018-12-25] MEDS: Multivit/Ca/Min/Fe/FA 1 TAB TABLET PO SCH (09:07)
[2018-12-25] MEDS: Insulin LISPRO 300 UNITS/3 ML VIAL SQ SCH ×4 (09:18→21:25)
[2018-12-25] MEDS: Insulin DETEMIR 100 UNIT/ML X5UNITS SQ SCH ×2 (09:21→21:25)
--- NOTE | 2018-12-25 16:34 | Orthopedics Progress Note ---
Date of Encounter: 12/25/18 Time of Encounter: 16:32 Subjective Principal diagnosis: Right total hip arthroplasty Interval history: Patient is doing well and comfortable. She is ambulating Vital signs stable/afebrile Right hip: Dressings are clean dry intact Bilateral calves are soft and nontender Neurovascularly intact distally Abduction pillow in place Assessment: Postoperative #2, doing well, stable Plan: Continue OT/PT Continue DVT prophylaxis Discharge planning to rehabilitation Objective Vital signs: Vital Signs Temp Pulse Resp BP Pulse Ox 12/25/18 15:55 99.5 F 96 16 116/63 96 12/25/18 10:42 99.4 F 102 18 121/77 95 12/25/18 09:00 95 12/25/18 05:37 99.1 F 96 17 119/69 95 12/25/18 03:57 98.9 F 90 18 159/76 99 12/24/18 23:31 98.9 F 85 18 129/64 98 12/24/18 20:11 98.8 F 99 18 112/60 94 12/24/18 16:35 98.3 F 99 18 124/73 94 Intake and Output 12/25/18 12/25/18 12/25/18 07:59 15:59 23:59 Intake Total 200 / 920 720 / 920 Output Total 0 / 250 250 / 250 Balance 200 / 670 470 / 670 Intake: Oral 200 / 920 720 / 920 Output: Urine 0 / 250 250 / 250 Other: Meal Lunch Percent of Meal Consumed 90% # Voids 1 Weight 88.86 kg Blood Glucose* 211 Patient Weight 12/25/18 23:59 Weight 88.86 kg - Labs CBC & BMP: 12/25/18 01:25 12/25/18 01:25 Labs: Abnormal lab results RBC 3.42 M/mcL (3.82-4.97) L 12/25/18 01:25 Hgb 9.6 g/dL (11.5-15.4) L 12/25/18 01:25 Hct 30.6 % (35.3-44.9) L 12/25/18 01:25 MCHC 31.4 g/dL (31.6-35.5) L 12/25/18 01:25 Sodium 135 mEq/L (136-145) L 12/25/18 01:25 Glucose 241 mg/dL (70-105) H 12/25/18 01:25 POC Glucose 211 mg/dL (70-99) H 12/25/18 11:19 Calculated Osmolality 279 (280-300) L 12/24/18 04:51 - VTE Documentation of Mechanical Device: Venous foot pump, device Consult Discharge Plan - Plan Referrals: Isac Castillo DO [Primary Care Provider] -
[2018-12-26] MEDS: *HR* Enoxaparin 30 MG/0.3 ML SYRINGE SQ SCH ×2 (06:59→17:36)
[2018-12-26] MEDS: Aspirin Enteric Coated 81 MG Tablet PO SCH (09:30)
[2018-12-26] MEDS: Ascorbic Acid 500 MG TABLET PO SCH ×2 (09:30→15:36)
[2018-12-26] MEDS: Gabapentin 300 MG CAPSULE PO SCH ×3 (09:30→20:36)
[2018-12-26] MEDS: *HR* Metformin 500 MG TABLET PO SCH ×2 (09:30→20:36)
[2018-12-26] MEDS: Multivit/Ca/Min/Fe/FA 1 TAB TABLET PO SCH (09:30)
[2018-12-26] MEDS: Insulin LISPRO 300 UNITS/3 ML VIAL SQ SCH ×4 (09:36→20:40)
[2018-12-26] MEDS: Insulin DETEMIR 100 UNIT/ML X5UNITS SQ SCH ×2 (09:36→20:36)
[2018-12-26] MEDS: *HR* OxyCODONE Immed Rel 5 MG TABLET PO PRN (09:38)
--- NOTE | 2018-12-26 10:48 | Orthopedics Progress Note ---
Date of Encounter: 12/26/18 Time of Encounter: 10:48 Subjective Principal diagnosis: Right total hip arthroplasty Interval history: Patient is doing well and comfortable. She is ambulating Vital signs stable/afebrile Right hip: Dressings are clean dry intact Bilateral calves are soft and nontender Neurovascularly intact distally Assessment: Postoperative #3, doing well, stable Plan: Continue OT/PT Continue DVT prophylaxis Discharge planning to rehabilitation Objective Vital signs: Vital Signs Temp Pulse Resp BP Pulse Ox 12/26/18 07:59 98.4 F 90 17 123/73 96 12/26/18 07:00 96 12/26/18 02:15 98.2 F 95 18 147/70 95 12/25/18 23:02 98.3 F 102 18 103/67 94 12/25/18 19:21 98.3 F 100 18 125/69 97 12/25/18 15:55 99.5 F 96 16 116/63 96 Intake and Output 12/25/18 12/26/18 12/26/18 23:59 07:59 15:59 Intake Total 730 / 1650 0 / 360 360 / 360 Output Total 0 / 250 Balance 730 / 1400 0 / 360 360 / 360 Intake: Oral 730 / 1650 0 / 360 360 / 360 Output: Urine 0 / 250 Other: Meal Dinner Breakfast Percent of Meal Consumed 100% 100% # Voids 1 # Urine Diapers 1 3 # Bowel Movements 0 Weight 89.52 kg Blood Glucose* 248 160 Patient Weight 12/26/18 23:59 Weight 89.52 kg - Labs CBC & BMP: 12/25/18 01:25 12/25/18 01:25 Labs: Abnormal lab results RBC 3.42 M/mcL (3.82-4.97) L 12/25/18 01:25 Hgb 9.6 g/dL (11.5-15.4) L 12/25/18 01:25 Hct 30.6 % (35.3-44.9) L 12/25/18 01:25 MCHC 31.4 g/dL (31.6-35.5) L 12/25/18 01:25 Sodium 135 mEq/L (136-145) L 12/25/18 01:25 Glucose 241 mg/dL (70-105) H 12/25/18 01:25 POC Glucose 160 mg/dL (70-99) H 12/26/18 08:00 Calculated Osmolality 279 (280-300) L 12/24/18 04:51 - VTE Documentation of Mechanical Device: Venous foot pump, device Consult Discharge Plan - Plan Referrals: Isac Castillo DO [Primary Care Provider] -
[2018-12-27] MEDS: *HR* Enoxaparin 30 MG/0.3 ML SYRINGE SQ SCH (06:01)
--- NOTE | 2018-12-27 06:48 | Orthopedics Progress Note ---
Date of Encounter: 12/27/18 Time of Encounter: 06:47 - Assessment and Plan (1) Acute blood loss anemia Current Visit: Yes Status: Acute Subjective Principal diagnosis: Right total hip arthroplasty Interval history: Patient was seen this morning doing well without complaints. Afebrile vital signs stable. Operative extremity: Neurovascularly intact Dressing clean dry and intact Calves nontender Assessment and plan: Continue with postoperative care Hemoglobin 9.6 [address] Objective Vital signs: Vital Signs Temp Pulse Resp BP Pulse Ox 12/26/18 22:32 99.0 F 101 16 156/71 95 12/26/18 19:21 98.5 F 90 17 136/76 94 12/26/18 15:49 98.2 F 93 16 144/81 97 12/26/18 10:58 97.6 F 93 17 121/76 93 12/26/18 07:59 98.4 F 90 17 123/73 96 12/26/18 07:00 96 Intake and Output 12/26/18 12/26/18 12/27/18 15:59 23:59 07:59 Intake Total 840 / 1130 290 / 1130 Balance 840 / 1130 290 / 1130 Intake: Oral 840 / 1130 290 / 1130 Other: Meal Lunch Dinner Percent of Meal Consumed 100% 100% # Voids 1 1 # Urine Diapers 1 1 Blood Glucose* 247 116 - Labs CBC & BMP: 12/25/18 01:25 12/25/18 01:25 Labs: Abnormal lab results RBC 3.42 M/mcL (3.82-4.97) L 12/25/18 01:25 Hgb 9.6 g/dL (11.5-15.4) L 12/25/18 01:25 Hct 30.6 % (35.3-44.9) L 12/25/18 01:25 MCHC 31.4 g/dL (31.6-35.5) L 12/25/18 01:25 Sodium 135 mEq/L (136-145) L 12/25/18 01:25 Glucose 241 mg/dL (70-105) H 12/25/18 01:25 POC Glucose 116 mg/dL (70-99) H 12/26/18 19:46 Calculated Osmolality 279 (280-300) L 12/24/18 04:51 - VTE Documentation of Mechanical Device: Venous foot pump, device Consult Discharge Plan - Plan Referrals: Isac Castillo DO [Primary Care Provider] -
[2018-12-27] MEDS: Insulin LISPRO 300 UNITS/3 ML VIAL SQ SCH (07:44)
[2018-12-27] MEDS: Ascorbic Acid 500 MG TABLET PO SCH (07:56)
[2018-12-27] MEDS: Multivit/Ca/Min/Fe/FA 1 TAB TABLET PO SCH (07:56)
[2018-12-27] MEDS: *HR* OxyCODONE Immed Rel 5 MG TABLET PO PRN (07:59)
[2018-12-27] MEDS: *HR* Metformin 500 MG TABLET PO SCH (07:59)
[2018-12-27] MEDS: Gabapentin 300 MG CAPSULE PO SCH (08:00)
[2018-12-27] MEDS: Aspirin Enteric Coated 81 MG Tablet PO SCH (08:00)
[2018-12-27] MEDS: Insulin DETEMIR 100 UNIT/ML X5UNITS SQ SCH (10:22)
[2018-12-27 10:57] VITALS: BP 104/64
== END 2018-12-27 12:14 | disposition home health service (06) | DRG 470 ==
LOC: SAMDAY 11:54 → 3NENU 17:28
PROVIDERS: ADMIT Orthopaedic Surgery; ATTEND Orthopaedic Surgery

== ENCOUNTER 2020-03-19 06:04 | Inpatient (IN) ==
[2020-03-19] MEDS ORDERED: NiCARdipine 2.5 MG/10 ML Syringe IVPB ONE (06:20)
[2020-03-19] MEDS ORDERED: *HR* FentaNYL (PF) 1,000 MCG/20 ML VIAL ONE (06:32)
[2020-03-19] MEDS ORDERED: *HR* Midazolam HCl 5 MG/5 ML VIAL IVP ONE (06:32)
[2020-03-19] MEDS ORDERED: *HR* Rocuronium Bromide 50 MG/5 ML VIAL ONE (06:34)
[2020-03-19] MEDS ORDERED: *HR* PHENYLEPHRINE 1,000 MCG/10 ML SYRINGE IVP ONE (06:34)
[2020-03-19] MEDS ORDERED: *HR* Etomidate 20 MG/10 ML AMPUL IVP ONE (06:35)
[2020-03-19] MEDS ORDERED: Famotidine 20 MG/2 ML VIAL ONE (06:35)
[2020-03-19] MEDS ORDERED: Calcium Gluconate 1,000 MG/10 ML VIAL ONE (06:37)
[2020-03-19] MEDS ORDERED: Protamine Sulfate 250 MG/25 ML VIAL IVP ONE (06:37)
[2020-03-19] MEDS ORDERED: Tranexamic Acid 1,000 MG/10 ML VIAL ONE ×2 (06:37→09:45)
[2020-03-19] MEDS ORDERED: EPINEPHrine 1 MG/ML VIAL ONE (06:39)
[2020-03-19] MEDS ORDERED: Papaverine 60 MG/2 ML VIAL IVP ONE (06:53)
[2020-03-19] MEDS ORDERED: ceFAZolin 1,000 MG in Water for inj. (sterile) 10 ML IVP ONE (07:29)
[2020-03-19 07:39] LABS: Adenovirus Not Detected (Not Detect); Bordetella Pertussis Not Detected (Not Detect); Chlamydophila pneumoniae Not Detected (Not Detect); Coronavirus 229E Not Detected (Not Detect); Coronavirus HKU1 Not Detected (Not Detect); Coronavirus NL63 Not Detected (Not Detect); Coronavirus OC43 Not Detected (Not Detect); Human Metapneumovirus Not Detected (Not Detect); Human Rhinovirus/Enterovirus Not Detected (Not Detect); Influenza A Subtype 2009 H1 Not Detected (Not Detect); Influenza B Not Detected (Not Detect); Mycoplasma pneumoniae Not Detected (Not Detect); Parainfluenza Virus 1 Not Detected (Not Detect); Parainfluenza Virus 2 Not Detected (Not Detect); Parainfluenza Virus 3 Not Detected (Not Detect); Parainfluenza Virus 4 Not Detected (Not Detect); Respiratory Syncytial Virus Not Detected (Not Detect); SARS-CoV-2 Not Detected (Not Detect)
[2020-03-19] MEDS ORDERED: Heparin 15,000 UNIT in 0.9 % Sodium Chloride 500 ML IV ONE (07:45)
[2020-03-19] MEDS ORDERED: Insulin Human Regular 100 UNIT in 0.9 % Sodium Chloride 100 ML IV PRN (07:45)
[2020-03-19] MEDS ORDERED: Norepinephrine 4 MG in 0.9 % Sodium Chloride 250 ML IVC PRN (07:45)
[2020-03-19] MEDS ORDERED: Dextrose 50 % in Water (Vial) 30 ML, Sodium Bicarbonate 20 MEQ, Potassium Chloride 15 M... TH ONE (07:45)
[2020-03-19] MEDS ORDERED: Dextrose 50 % in Water (Vial) 30 ML, Sodium Bicarbonate 20 MEQ, Lidocaine 1% 5 ML, Insu... TH ONE ×3 (07:45)
[2020-03-19 08:31] LABS: ABG Base Excess -1 mEq/L (-2 to 3); ABG Chloride 105 mEq/L (98-107); ABG Glucose 83 mg/dL (60-95); ABG HCO3 27 mEq/L (21-27); ABG Ionized Calcium 1.24 mmol/L (1.15-1.35); ABG Oxygen Saturation 100 % (95-98); ABG PCO2 56 mmHg (35-45); ABG PH 7.28 pH Units (7.32-7.45); ABG PO2 389 mmHg (85-104); ABG TCO2 28 mEq/L (20-26)
[2020-03-19] MEDS ORDERED: Chlorhexidine Rinse 15 ML MOUTHWASH MM SCH ×2 (09:00→21:00)
[2020-03-19] MEDS ORDERED: ceFAZolin 2,000 MG in Water for inj. (sterile) 20 ML IVP ONE (09:03)
[2020-03-19 10:15] LABS: ABG Base Excess -1 mEq/L (-2 to 3); ABG Chloride 105 mEq/L (98-107); ABG Glucose 107 mg/dL (60-95); ABG HCO3 24 mEq/L (21-27); ABG Ionized Calcium 1.15 mmol/L (1.15-1.35); ABG Oxygen Saturation 98 % (95-98); ABG PCO2 43 mmHg (35-45); ABG PH 7.36 pH Units (7.32-7.45); ABG PO2 112 mmHg (85-104); ABG TCO2 25 mEq/L (20-26)
[2020-03-19 10:28] LABS: ABG Base Excess 1 mEq/L (-2 to 3); ABG Chloride 100 mEq/L (98-107); ABG Glucose 147 mg/dL (60-95); ABG HCO3 25 mEq/L (21-27); ABG Ionized Calcium 1.01 mmol/L (1.15-1.35); ABG Oxygen Saturation 100 % (95-98); ABG PCO2 38 mmHg (35-45); ABG PH 7.44 pH Units (7.32-7.45); ABG PO2 585 mmHg (85-104); ABG TCO2 27 mEq/L (20-26)
[2020-03-19] MEDS ORDERED: *HR* Dextrose 50 % in Water (Syg) 50 ML SYRINGE ONE (11:15)
[2020-03-19 11:19] LABS: ABG Base Excess -1 mEq/L (-2 to 3); ABG Chloride 104 mEq/L (98-107); ABG Glucose 38 mg/dL (60-95); ABG HCO3 24 mEq/L (21-27); ABG Oxygen Saturation 97 % (95-98); ABG PCO2 38 mmHg (35-45); ABG PO2 93 mmHg (85-104); ABG TCO2 25 mEq/L (20-26)
[2020-03-19] MEDS ORDERED: Albumin Human 5% 50.0 GM/1,000 ML IV.SOLN ONE (11:28)
[2020-03-19] MEDS ORDERED: *HR* OxyCODONE/APAP 5/325 TABLET PO PRN (11:32)
[2020-03-19] MEDS ORDERED: *HR* Dextrose 50 % in Water (Vial) 50 ML VIAL IVP PRN (11:32)
[2020-03-19] MEDS ORDERED: Insulin Regular, Human 100 UNIT/ML IV PRN (11:32)
[2020-03-19] MEDS ORDERED: Naloxone 0.4 MG/ML INJ IVP PRN (11:32)
[2020-03-19] MEDS ORDERED: Acetaminophen 325 MG TABLET PO PRN (11:32)
[2020-03-19] MEDS ORDERED: *HR* FentaNYL (PF) 100 MCG/2 ML VIAL IVP PRN (11:32)
[2020-03-19] MEDS ORDERED: Potassium Chloride 40 MEQ/200 ML BAG IVPB PRN (11:32)
[2020-03-19] MEDS ORDERED: *HR* Promethazine 25 MG/ML VIAL IM PRN (11:32)
[2020-03-19] MEDS ORDERED: Ondansetron 4 MG/2 ML VIAL IVP PRN (11:32)
[2020-03-19] MEDS ORDERED: Norepinephrine 4 MG/254 ML IV.SOLN IVC SCH (11:45)
[2020-03-19] MEDS ORDERED: Insulin Human Regular 100 UNIT in 0.9 % Sodium Chloride 100 ML IVC SCH (11:45)
[2020-03-19 11:54] LABS: ABG Base Excess 0 mEq/L (-2 to 3); ABG HCO3 25 mEq/L (21-27); ABG Oxygen Saturation 100 % (95-98); ABG PCO2 40 mmHg (35-45); ABG PO2 415 mmHg (85-104); ABG TCO2 26 mEq/L (20-26); Blood Gas VT 600 cc
[2020-03-19] MEDS: Albumin Human 5% 12.5 GM/250 ML IV.SOLN IVPB PRN ×3 (12:00→14:45)
[2020-03-19 12:05] LABS: Basophils # 0.1 K/mcL (0.0-0.2); Basophils % 0.7 %; Eosinophils # 0.3 K/mcL (0.0-0.6); Eosinophils % 2.2 %; Lymphocytes # 2.2 K/mcL (0.6-4.6); Lymphocytes % 15.8 %; Mean Corpuscular Hemoglobin 26.4 pg (28.0-33.3); Mean Corpuscular Volume 82.7 fL (83.0-100.0); Mean Platelet Volume 9.7 fL (9.4-12.4); Monocytes # 0.5 K/mcL (0.0-1.3); Monocytes % 3.9 %; Neutrophils # 10.6 K/mcL (1.6-8.9); Red Blood Count 4.73 M/mcL (3.82-4.97); Red Cell Distribution Width 14.1 % (11.5-14.5); Segmented Neutrophils % 76.4 %
[2020-03-19 12:20] LABS: Hemoglobin 12.5 g/dL (11.5-15.4); White Blood Count 13.9 K/mcL (4.3-11.1)
[2020-03-19 12:21] LABS: Activated Partial Thrombo Time 29.6 Seconds (26.0-36.0); BUN/Creatinine Ratio 29 (6-26); Blood Urea Nitrogen 16 mg/dL (8-23); Calcium 8.3 mg/dL (8.6-10.3); Carbon Dioxide 25 mEq/L (23-29); Chloride 109 mEq/L (98-107); Glucose 103 mg/dL (70-105); Hematocrit 39.1 % (35.3-44.9); INR 1.4; Magnesium 2.2 mg/dL (1.6-2.6); Osmolality,Calculated 289 (280-300); Platelet Count 139 K/mcL (140-400); Sodium 139 mEq/L (136-145); eGFR For African Americans > 60 (> 60); eGFR For Non-African Americans > 60 (> 60)
[2020-03-19] MEDS: 0.9 % Sodium Chloride 1,000 ML IVC SCH (12:49)
[2020-03-19] MEDS: niCARdipine 20 MG/200 ML MLS IVC SCH (13:10)
[2020-03-19] MEDS: CeFAZolin 2 GM/120 ML BAG IVPB SCH ×2 (16:31→23:46)
[2020-03-19] MEDS ORDERED: *HR* Phenylephrine 10 MG/ML VIAL IVC ONE (16:44)
[2020-03-19] MEDS ORDERED: Tranexamic Acid 1,000 MG/10 ML VIAL IR ONE (16:44)
[2020-03-19] MEDS ORDERED: *HR* Heparin 10,000 UNIT/10 ML VIAL IR ONE (16:44)
[2020-03-19] MEDS ORDERED: Albumin Human 25% 25 GM/100 ML IV.SOLN IVPB ONE (16:44)
[2020-03-19] MEDS ORDERED: *HR* Magnesium Sulfate 2 GM/50 ML PIGGYBACK IVPB ONE (16:44)
[2020-03-19] MEDS ORDERED: Lidocaine 2% Syringe 100 MG/5 ML IVP ONE (16:44)
[2020-03-19] MEDS ORDERED: Mannitol 25% vial 12.5 GM/50 ML VIAL IVPB ONE (16:44)
[2020-03-19 16:45] LABS: ABG Base Excess 0 mEq/L (-2 to 3); ABG HCO3 24 mEq/L (21-27); ABG Oxygen Saturation 96 % (95-98); ABG PCO2 37 mmHg (35-45); ABG PH 7.43 pH Units (7.32-7.45); ABG PO2 78 mmHg (85-104); ABG TCO2 25 mEq/L (20-26); Blood Gas VT 600 cc
[2020-03-19 20:32] LABS: ABG Base Excess 0 mEq/L (-2 to 3); ABG HCO3 24 mEq/L (21-27); ABG Oxygen Saturation 97 % (95-98); ABG PCO2 32 mmHg (35-45); ABG PH 7.47 pH Units (7.32-7.45); ABG PO2 80 mmHg (85-104); ABG TCO2 25 mEq/L (20-26); Blood Gas Modality ASSIST CONTROL; Blood Gas VT 600 cc
[2020-03-20 00:29] LABS: ABG Base Excess -1 mEq/L (-2 to 3); ABG HCO3 25 mEq/L (21-27); ABG Oxygen Saturation 93 % (95-98); ABG PCO2 45 mmHg (35-45); ABG PH 7.36 pH Units (7.32-7.45); ABG PO2 69 mmHg (85-104); ABG TCO2 26 mEq/L (20-26)
[2020-03-20] MEDS: niCARdipine 20 MG/200 ML MLS IVC SCH ×2 (00:40→00:41)
[2020-03-20] MEDS ORDERED: niCARdipine 20 MG/200 ML MLS IVC PRN (00:42)
[2020-03-20 04:07] LABS: Basophils % 0.4 %; Hemoglobin 11.2 g/dL (11.5-15.4); Immature Granulocytes % 0.5 % (0-4); Lymphocytes # 0.8 K/mcL (0.6-4.6); Lymphocytes % 7.4 %; Mean Corpuscular Hemoglobin 26.8 pg (28.0-33.3); Mean Corpuscular Volume 83.7 fL (83.0-100.0); Mean Platelet Volume 9.7 fL (9.4-12.4); Monocytes # 0.6 K/mcL (0.0-1.3); Monocytes % 5.5 %; Neutrophils # 9.6 K/mcL (1.6-8.9); Platelet Count 152 K/mcL (140-400); Red Blood Count 4.18 M/mcL (3.82-4.97); Red Cell Distribution Width 14.3 % (11.5-14.5); Segmented Neutrophils % 86.2 %; White Blood Count 11.2 K/mcL (4.3-11.1)
[2020-03-20 04:23] LABS: BUN/Creatinine Ratio 33 (6-26); Blood Urea Nitrogen 20 mg/dL (8-23); Carbon Dioxide 23 mEq/L (23-29); Chloride 109 mEq/L (98-107); Glucose 164 mg/dL (70-105); Osmolality,Calculated 296 (280-300); Potassium 3.8 mEq/L (3.5-5.1); Sodium 140 mEq/L (136-145); eGFR For African Americans > 60 (> 60); eGFR For Non-African Americans > 60 (> 60)
[2020-03-20] MEDS: 0.9 % Sodium Chloride 1,000 ML IVC SCH (05:29)
[2020-03-20] MEDS: Pantoprazole 40 MG VIAL IVP SCH ×2 (07:13→07:15)
[2020-03-20] MEDS ORDERED: *HR* Dextrose 50 % in Water (Vial) 50 ML VIAL IVP PRN (08:38)
[2020-03-20] MEDS ORDERED: Acetaminophen 325 MG TABLET PO PRN (08:38)
[2020-03-20] MEDS ORDERED: Ondansetron 4 MG/2 ML VIAL IVP PRN (08:38)
[2020-03-20] MEDS ORDERED: *HR* Promethazine 25 MG/ML VIAL IM PRN (08:38)
[2020-03-20] MEDS ORDERED: Naloxone 0.4 MG/ML INJ IVP PRN (08:38)
[2020-03-20] MEDS ORDERED: Dextrose Gel 15 GM/37.5 ML TUBE PO PRN ×2 (08:38)
[2020-03-20] MEDS ORDERED: D5% in Water 1,000 ML IVC PRN (08:38)
[2020-03-20] MEDS ORDERED: Pantoprazole 40 MG VIAL IVP SCH (09:00)
[2020-03-20] MEDS: Chlorhexidine Rinse 15 ML MOUTHWASH MM SCH ×2 (09:11→20:04)
[2020-03-20] MEDS: Aspirin Enteric Coated 81 MG Tablet PO SCH (09:25)
[2020-03-20] MEDS: PARoxetine 30 MG TABLET PO SCH (09:39)
[2020-03-20] MEDS: Insulin LISPRO 300 UNITS/3 ML VIAL SQ SCH ×3 (12:21→20:30)
[2020-03-20] MEDS: *HR* OxyCODONE/APAP 5/325 TABLET PO PRN ×3 (12:24→20:30)
[2020-03-20] MEDS: *HR* Heparin 5,000 UNIT/ML VIAL SQ SCH (16:27)
[2020-03-20] MEDS: Insulin DETEMIR 100 UNIT/ML X5UNITS SQ SCH (20:30)
[2020-03-21] MEDS: *HR* OxyCODONE/APAP 5/325 TABLET PO PRN ×4 (03:22→20:17)
[2020-03-21 05:05] LABS: Basophils % 0.3 %; Eosinophils # 0.1 K/mcL (0.0-0.6); Eosinophils % 0.7 %; Hematocrit 36.8 % (35.3-44.9); Hemoglobin 11.2 g/dL (11.5-15.4); Immature Granulocytes % 0.6 % (0-4); Lymphocytes # 1.3 K/mcL (0.6-4.6); Lymphocytes % 10.6 %; Mean Corpuscular HGB Conc 30.4 g/dL (31.6-35.5); Mean Corpuscular Hemoglobin 26.6 pg (28.0-33.3); Mean Corpuscular Volume 87.4 fL (83.0-100.0); Mean Platelet Volume 9.8 fL (9.4-12.4); Monocytes % 7.8 %; Neutrophils # 9.8 K/mcL (1.6-8.9); Platelet Count 166 K/mcL (140-400); Red Blood Count 4.21 M/mcL (3.82-4.97); Red Cell Distribution Width 14.6 % (11.5-14.5); White Blood Count 12.3 K/mcL (4.3-11.1)
[2020-03-21 05:24] LABS: BUN/Creatinine Ratio 30 (6-26); Blood Urea Nitrogen 16 mg/dL (8-23); Calcium 8.1 mg/dL (8.6-10.3); Carbon Dioxide 25 mEq/L (23-29); Chloride 106 mEq/L (98-107); Glucose 224 mg/dL (70-105); Osmolality,Calculated 292 (280-300); Potassium 4.2 mEq/L (3.5-5.1); Sodium 137 mEq/L (136-145); eGFR For African Americans > 60 (> 60); eGFR For Non-African Americans > 60 (> 60)
[2020-03-21] MEDS: *HR* Heparin 5,000 UNIT/ML VIAL SQ SCH ×2 (06:31→17:01)
[2020-03-21] MEDS: Insulin LISPRO 300 UNITS/3 ML VIAL SQ SCH ×4 (07:41→20:16)
[2020-03-21] MEDS: Aspirin Enteric Coated 81 MG Tablet PO SCH (07:41)
[2020-03-21] MEDS: PARoxetine 30 MG TABLET PO SCH (07:42)
[2020-03-21] MEDS: Chlorhexidine Rinse 15 ML MOUTHWASH MM SCH ×2 (07:42→20:15)
[2020-03-21] MEDS: Insulin DETEMIR 100 UNIT/ML X5UNITS SQ SCH (20:16)
[2020-03-22] MEDS: *HR* OxyCODONE/APAP 5/325 TABLET PO PRN ×5 (00:24→22:07)
[2020-03-22] MEDS: *HR* Heparin 5,000 UNIT/ML VIAL SQ SCH ×2 (05:09→17:32)
[2020-03-22 05:30] LABS: Basophils # 0.1 K/mcL (0.0-0.2); Basophils % 0.7 %; Eosinophils # 0.3 K/mcL (0.0-0.6); Eosinophils % 2.9 %; Hematocrit 32.7 % (35.3-44.9); Hemoglobin 10.1 g/dL (11.5-15.4); Immature Granulocytes % 0.7 % (0-4); Lymphocytes # 1.9 K/mcL (0.6-4.6); Lymphocytes % 19.5 %; Mean Corpuscular HGB Conc 30.9 g/dL (31.6-35.5); Mean Corpuscular Hemoglobin 27.2 pg (28.0-33.3); Mean Corpuscular Volume 87.9 fL (83.0-100.0); Mean Platelet Volume 10.1 fL (9.4-12.4); Monocytes # 0.8 K/mcL (0.0-1.3); Monocytes % 8.7 %; Neutrophils # 6.5 K/mcL (1.6-8.9); Platelet Count 174 K/mcL (140-400); Red Blood Count 3.72 M/mcL (3.82-4.97); Red Cell Distribution Width 14.4 % (11.5-14.5); Segmented Neutrophils % 67.5 %; White Blood Count 9.6 K/mcL (4.3-11.1)
[2020-03-22 05:44] LABS: BUN/Creatinine Ratio 26 (6-26); Blood Urea Nitrogen 17 mg/dL (8-23); Calcium 8.4 mg/dL (8.6-10.3); Carbon Dioxide 26 mEq/L (23-29); Chloride 102 mEq/L (98-107); Glucose 279 mg/dL (70-105); Osmolality,Calculated 292 (280-300); Sodium 135 mEq/L (136-145); eGFR For African Americans > 60 (> 60); eGFR For Non-African Americans > 60 (> 60)
[2020-03-22] MEDS: Aspirin Enteric Coated 81 MG Tablet PO SCH (07:52)
[2020-03-22] MEDS: Chlorhexidine Rinse 15 ML MOUTHWASH MM SCH ×2 (07:53→22:07)
[2020-03-22] MEDS: Insulin LISPRO 300 UNITS/3 ML VIAL SQ SCH ×4 (07:53→22:07)
[2020-03-22] MEDS: PARoxetine 30 MG TABLET PO SCH (07:53)
[2020-03-22] MEDS: Insulin DETEMIR 100 UNIT/ML X5UNITS SQ SCH (22:06)
[2020-03-23] MEDS: *HR* OxyCODONE/APAP 5/325 TABLET PO PRN ×4 (05:08→20:55)
[2020-03-23] MEDS: *HR* Heparin 5,000 UNIT/ML VIAL SQ SCH ×2 (05:08→16:33)
[2020-03-23] MEDS: Chlorhexidine Rinse 15 ML MOUTHWASH MM SCH ×2 (07:32→20:16)
[2020-03-23] MEDS: PARoxetine 30 MG TABLET PO SCH (07:32)
[2020-03-23] MEDS: Aspirin Enteric Coated 81 MG Tablet PO SCH (07:32)
[2020-03-23] MEDS: Insulin LISPRO 300 UNITS/3 ML VIAL SQ SCH ×4 (07:32→20:17)
[2020-03-23] MEDS: Sulfamethoxazole/Trimeth DS 1 EACH TABLET PO SCH (20:16)
[2020-03-23] MEDS: Insulin DETEMIR 100 UNIT/ML X5UNITS SQ SCH (20:17)
[2020-03-24] MEDS: *HR* OxyCODONE/APAP 5/325 TABLET PO PRN ×5 (03:40→21:52)
[2020-03-24] MEDS: *HR* Heparin 5,000 UNIT/ML VIAL SQ SCH ×2 (06:44→17:11)
[2020-03-24] MEDS: Insulin LISPRO 300 UNITS/3 ML VIAL SQ SCH ×4 (08:29→21:53)
[2020-03-24] MEDS: PARoxetine 30 MG TABLET PO SCH (08:31)
[2020-03-24] MEDS: Chlorhexidine Rinse 15 ML MOUTHWASH MM SCH ×2 (08:31→21:52)
[2020-03-24] MEDS: Aspirin Enteric Coated 81 MG Tablet PO SCH (08:31)
[2020-03-24] MEDS: Sulfamethoxazole/Trimeth DS 1 EACH TABLET PO SCH ×2 (08:31→21:53)
[2020-03-24] MEDS: Furosemide 40 MG/4 ML VIAL IVP SCH (13:59)
[2020-03-24] MEDS: Insulin DETEMIR 100 UNIT/ML X5UNITS SQ SCH (21:53)
[2020-03-25] MEDS: *HR* OxyCODONE/APAP 5/325 TABLET PO PRN ×5 (01:49→23:32)
[2020-03-25 05:32] LABS: BUN/Creatinine Ratio 19 (6-26); Blood Urea Nitrogen 14 mg/dL (8-23); Calcium 8.3 mg/dL (8.6-10.3); Carbon Dioxide 28 mEq/L (23-29); Chloride 96 mEq/L (98-107); Glucose 332 mg/dL (70-105); Magnesium 1.6 mg/dL (1.6-2.6); Osmolality,Calculated 283 (280-300); Potassium 4.8 mEq/L (3.5-5.1); Sodium 130 mEq/L (136-145); eGFR For African Americans > 60 (> 60); eGFR For Non-African Americans > 60 (> 60)
[2020-03-25] MEDS: *HR* Heparin 5,000 UNIT/ML VIAL SQ SCH ×2 (06:21→17:01)
[2020-03-25] MEDS: Chlorhexidine Rinse 15 ML MOUTHWASH MM SCH ×2 (08:09→20:51)
[2020-03-25] MEDS: Furosemide 40 MG/4 ML VIAL IVP SCH ×2 (08:09→20:54)
[2020-03-25] MEDS: Aspirin Enteric Coated 81 MG Tablet PO SCH (08:10)
[2020-03-25] MEDS: PARoxetine 30 MG TABLET PO SCH (08:10)
[2020-03-25] MEDS: Sulfamethoxazole/Trimeth DS 1 EACH TABLET PO SCH ×2 (08:14→20:52)
[2020-03-25] MEDS: Insulin LISPRO 300 UNITS/3 ML VIAL SQ SCH ×6 (08:16→20:52)
[2020-03-25] MEDS: polyethylene glycoL 3350 17 GM POWD.PACK PO SCH (13:57)
[2020-03-25] MEDS: *HR* Metformin 500 MG TABLET PO SCH (17:01)
[2020-03-25] MEDS: EMPAGLIFLOZIN 10 MG PO SCH (18:26)
[2020-03-25] MEDS: Insulin DETEMIR 100 UNIT/ML X5UNITS SQ SCH (20:51)
[2020-03-25] MEDS ORDERED: Insulin DETEMIR 100 UNIT/ML X5UNITS SQ SCH (21:00)
[2020-03-26] MEDS: *HR* Heparin 5,000 UNIT/ML VIAL SQ SCH ×2 (05:48→16:31)
[2020-03-26] MEDS: *HR* OxyCODONE/APAP 5/325 TABLET PO PRN ×5 (05:48→22:50)
[2020-03-26 08:06] LABS: BUN/Creatinine Ratio 20 (6-26); Blood Urea Nitrogen 16 mg/dL (8-23); Calcium 8.8 mg/dL (8.6-10.3); Carbon Dioxide 26 mEq/L (23-29); Chloride 98 mEq/L (98-107); Glucose 162 mg/dL (70-105); Magnesium 2.2 mg/dL (1.6-2.6); Osmolality,Calculated 281 (280-300); Potassium 4.8 mEq/L (3.5-5.1); Sodium 133 mEq/L (136-145); eGFR For African Americans > 60 (> 60); eGFR For Non-African Americans > 60 (> 60)
[2020-03-26] MEDS: Chlorhexidine Rinse 15 ML MOUTHWASH MM SCH ×2 (08:35→20:52)
[2020-03-26] MEDS: Furosemide 40 MG/4 ML VIAL IVP SCH ×2 (08:35→20:52)
[2020-03-26] MEDS: polyethylene glycoL 3350 17 GM POWD.PACK PO SCH (08:35)
[2020-03-26] MEDS: Insulin LISPRO 300 UNITS/3 ML VIAL SQ SCH ×7 (08:36→20:49)
[2020-03-26] MEDS: *HR* Metformin 500 MG TABLET PO SCH ×2 (08:36→16:31)
[2020-03-26] MEDS: Sulfamethoxazole/Trimeth DS 1 EACH TABLET PO SCH ×2 (08:37→20:52)
[2020-03-26] MEDS: Aspirin Enteric Coated 81 MG Tablet PO SCH (08:37)
[2020-03-26] MEDS: PARoxetine 30 MG TABLET PO SCH (08:37)
[2020-03-26] MEDS: Insulin DETEMIR 100 UNIT/ML X5UNITS SQ SCH ×2 (08:41→20:52)
[2020-03-26] MEDS: EMPAGLIFLOZIN 10 MG PO SCH (13:28)
[2020-03-27] MEDS: *HR* OxyCODONE/APAP 5/325 TABLET PO PRN ×2 (04:50→08:52)
[2020-03-27] MEDS: *HR* Heparin 5,000 UNIT/ML VIAL SQ SCH (04:52)
[2020-03-27] MEDS: *HR* Metformin 500 MG TABLET PO SCH (08:48)
[2020-03-27] MEDS: Sulfamethoxazole/Trimeth DS 1 EACH TABLET PO SCH (08:49)
[2020-03-27] MEDS: Aspirin Enteric Coated 81 MG Tablet PO SCH (08:49)
[2020-03-27] MEDS: polyethylene glycoL 3350 17 GM POWD.PACK PO SCH (08:50)
[2020-03-27] MEDS: Chlorhexidine Rinse 15 ML MOUTHWASH MM SCH (08:50)
[2020-03-27] MEDS: EMPAGLIFLOZIN 10 MG PO SCH (08:51)
[2020-03-27] MEDS: PARoxetine 30 MG TABLET PO SCH (08:52)
[2020-03-27] MEDS: Insulin DETEMIR 100 UNIT/ML X5UNITS SQ SCH (08:57)
[2020-03-27] MEDS: Furosemide 40 MG/4 ML VIAL IVP SCH (09:04)
[2020-03-27] MEDS: Insulin LISPRO 300 UNITS/3 ML VIAL SQ SCH ×2 (09:17→09:18)
[2020-03-27 10:12] VITALS: BP 143/62
== END 2020-03-27 11:12 | disposition home or self-care (01) | DRG 236 ==
LOC: SAMDAY 06:04 → ICNU 11:04 → 2NNU 03-20 23:23
PROVIDERS: ADMIT Thoracic Surgery (Cardiothoracic Vascular Surgery); ATTEND Thoracic Surgery (Cardiothoracic Vascular Surgery)

== ENCOUNTER 2020-09-05 23:10 | Inpatient (IN) ==
[2020-09-05] MEDS ORDERED: Dexamethasone 4 MG/ML VIAL IVP ONE (23:27)
[2020-09-06 00:03] LABS: Basophils # 0.1 K/mcL (0.0-0.2); Basophils % 0.5 %; Eosinophils % 0.3 %; Immature Granulocytes % 4.3 % (0-4); Lymphocytes # 1.6 K/mcL (0.6-4.6); Lymphocytes % 15.6 %; Mean Corpuscular HGB Conc 29.7 g/dL (31.6-35.5); Mean Corpuscular Hemoglobin 22.8 pg (28.0-33.3); Mean Corpuscular Volume 76.8 fL (83.0-100.0); Mean Platelet Volume 9.9 fL (9.4-12.4); Monocytes # 0.4 K/mcL (0.0-1.3); Monocytes % 3.5 %; Neutrophils # 7.7 K/mcL (1.6-8.9); Platelet Count 318 K/mcL (140-400); Red Blood Count 4.82 M/mcL (3.82-4.97); Segmented Neutrophils % 75.8 %; White Blood Count 10.2 K/mcL (4.3-11.1)
[2020-09-06 00:21] LABS: BUN/Creatinine Ratio 16 (6-26); Blood Urea Nitrogen 12 mg/dL (8-23); Calcium 8.3 mg/dL (8.6-10.3); Carbon Dioxide 25 mEq/L (23-29); Chloride 96 mEq/L (98-107); Glucose 191 mg/dL (70-105); Osmolality,Calculated 281 (280-300); Potassium 3.7 mEq/L (3.5-5.1); Sodium 133 mEq/L (136-145); eGFR For African Americans > 60 (> 60); eGFR For Non-African Americans > 60 (> 60)
[2020-09-06 00:22] LABS: Troponin I < 0.03 ng/mL (< 0.04)
[2020-09-06] MEDS ORDERED: Acetaminophen 325 MG TABLET PO PRN (02:37)
[2020-09-06] MEDS ORDERED: Naloxone 0.4 MG/ML INJ IVP PRN (02:37)
[2020-09-06] MEDS ORDERED: Ondansetron 4 MG/2 ML VIAL IVP PRN (02:37)
[2020-09-06] MEDS ORDERED: Melatonin 3 MG TABLET PO PRN (02:37)
[2020-09-06] MEDS ORDERED: *HR* HYDROcodone/Acet 5/325 mg TABLET PO PRN (02:39)
[2020-09-06] MEDS ORDERED: D5% in Water 1,000 ML IVC PRN (02:43)
[2020-09-06] MEDS ORDERED: *HR* Dextrose 50 % in Water (Vial) 50 ML VIAL IVP PRN (02:43)
[2020-09-06] MEDS ORDERED: Dextrose Gel 15 GM/37.5 ML TUBE PO PRN ×2 (02:43)
[2020-09-06 05:28] LABS: Basophils # 0.1 K/mcL (0.0-0.2); Basophils % 0.7 %; Hematocrit 37.2 % (35.3-44.9); Hemoglobin 11.2 g/dL (11.5-15.4); INR 1.1; Lymphocytes # 0.8 K/mcL (0.6-4.6); Mean Corpuscular HGB Conc 30.1 g/dL (31.6-35.5); Mean Corpuscular Volume 76.2 fL (83.0-100.0); Mean Platelet Volume 9.7 fL (9.4-12.4); Monocytes # 0.1 K/mcL (0.0-1.3); Monocytes % 1.4 %; Neutrophils # 8.9 K/mcL (1.6-8.9); Platelet Count 327 K/mcL (140-400); Prothrombin Time 12.5 Seconds (9.4-12.1); Red Blood Count 4.88 M/mcL (3.82-4.97); Red Cell Distribution Width 16.1 % (11.5-14.5); Segmented Neutrophils % 85.9 %; White Blood Count 10.3 K/mcL (4.3-11.1)
[2020-09-06 05:39] LABS: Alanine Aminotransferase 13 Units/L (7-52); Albumin 3.5 g/dL (3.5-5.7); Alkaline Phosphatase 72 Units/L (34-104); Aspartate Amino Transferase 27 Units/L (13-39); BUN/Creatinine Ratio 23 (6-26); Bilirubin,Total 0.2 mg/dL (0.3-1.0); Blood Urea Nitrogen 15 mg/dL (8-23); C-Reactive Protein 93 mg/L (Less than 10); Calcium 8.4 mg/dL (8.6-10.3); Carbon Dioxide 24 mEq/L (23-29); Chloride 98 mEq/L (98-107); Globulin 3.5 g/dL (2.4-3.5); Glucose 282 mg/dL (70-105); Lactate Dehydrogenase 366 Units/L (140-271); Magnesium 1.9 mg/dL (1.6-2.6); Osmolality,Calculated 285 (280-300); Phosphorous 4.5 mg/dL (2.7-4.5); Potassium 4.5 mEq/L (3.5-5.1); Sodium 132 mEq/L (136-145); eGFR For African Americans > 60 (> 60); eGFR For Non-African Americans > 60 (> 60)
[2020-09-06] MEDS: *HR* Enoxaparin 40 MG/0.4 ML SYRINGE SQ SCH (05:42)
[2020-09-06 05:57] LABS: Ferritin 162 ng/mL (10-120)
[2020-09-06] MEDS: Dexamethasone Sodium Phos/PF 10 MG/ML VIAL IVP SCH (08:31)
[2020-09-06] MEDS: Aspirin Enteric Coated 81 MG Tablet PO SCH (08:31)
[2020-09-06] MEDS: Insulin LISPRO 300 UNITS/3 ML VIAL SUBQ SCH ×3 (08:32→16:37)
[2020-09-06] MEDS ORDERED: Insulin LISPRO 300 UNITS/3 ML VIAL SUBQ SCH (21:00)
[2020-09-06] MEDS ORDERED: Insulin DETEMIR 100 UNIT/ML X5UNITS SUBQ SCH (21:00)
[2020-09-07] MEDS: *HR* Enoxaparin 40 MG/0.4 ML SYRINGE SQ SCH (05:55)
[2020-09-07] MEDS: Dexamethasone Sodium Phos/PF 10 MG/ML VIAL IVP SCH (09:42)
[2020-09-07] MEDS: Aspirin Enteric Coated 81 MG Tablet PO SCH (09:43)
[2020-09-07] MEDS: Insulin LISPRO 300 UNITS/3 ML VIAL SUBQ SCH ×4 (09:44→22:03)
[2020-09-07] MEDS: Insulin DETEMIR 100 UNIT/ML X5UNITS SUBQ SCH (22:03)
[2020-09-08] MEDS: *HR* Enoxaparin 40 MG/0.4 ML SYRINGE SQ SCH (05:47)
[2020-09-08] MEDS: Insulin LISPRO 300 UNITS/3 ML VIAL SUBQ SCH ×4 (07:24→21:02)
[2020-09-08] MEDS: Dexamethasone Sodium Phos/PF 10 MG/ML VIAL IVP SCH (07:33)
[2020-09-08] MEDS: PARoxetine 20 MG TABLET PO SCH (07:34)
[2020-09-08] MEDS: Aspirin Enteric Coated 81 MG Tablet PO SCH (07:34)
[2020-09-08] MEDS: Insulin DETEMIR 100 UNIT/ML X5UNITS SUBQ SCH ×2 (07:35→21:02)
[2020-09-08] MEDS ORDERED: NON-FORMULARY MEDICATION 1 EACH EACH (Esomeprazole Magnesium [Nexium] 20 MG Capsule.Dr) PO SCH (09:00)
[2020-09-08] MEDS ORDERED: PAROXETINE HCL 37.5 MG PO SCH (09:00)
[2020-09-09] MEDS: *HR* Enoxaparin 40 MG/0.4 ML SYRINGE SQ SCH (06:18)
[2020-09-09] MEDS: Insulin LISPRO 300 UNITS/3 ML VIAL SUBQ SCH ×4 (08:22→20:20)
[2020-09-09] MEDS: PARoxetine 20 MG TABLET PO SCH (09:07)
[2020-09-09] MEDS: Dexamethasone Sodium Phos/PF 10 MG/ML VIAL IVP SCH (09:07)
[2020-09-09 09:16] LABS: Eosinophils % 0.9 %; Immature Granulocytes % 4.7 % (0-4)
[2020-09-09 09:17] LABS: Basophils # 0.1 K/mcL (0.0-0.2); Basophils % 0.6 %; Eosinophils # 0.1 K/mcL (0.0-0.6); Hematocrit 40.8 % (35.3-44.9); Lymphocytes % 13.8 %; Mean Corpuscular HGB Conc 29.4 g/dL (31.6-35.5); Mean Corpuscular Hemoglobin 23.3 pg (28.0-33.3); Mean Corpuscular Volume 79.2 fL (83.0-100.0); Mean Platelet Volume 10.1 fL (9.4-12.4); Monocytes # 0.6 K/mcL (0.0-1.3); Monocytes % 5.7 %; Neutrophils # 8.3 K/mcL (1.6-8.9); Nucleated Red Blood Cells 0.2 /100 WBC (0); Platelet Count 500 K/mcL (140-400); Red Blood Count 5.15 M/mcL (3.82-4.97); Red Cell Distribution Width 15.9 % (11.5-14.5); Segmented Neutrophils % 74.3 %; White Blood Count 11.2 K/mcL (4.3-11.1)
[2020-09-09 09:27] LABS: Lymphocytes # 1.6 K/mcL (0.6-4.6)
[2020-09-09 09:59] LABS: BUN/Creatinine Ratio 32 (6-26); Blood Urea Nitrogen 18 mg/dL (8-23); Carbon Dioxide 28 mEq/L (23-29); Chloride 101 mEq/L (98-107); Glucose 136 mg/dL (70-105); Osmolality,Calculated 288 (280-300); Potassium 4.2 mEq/L (3.5-5.1); Sodium 137 mEq/L (136-145); eGFR For African Americans > 60 (> 60); eGFR For Non-African Americans > 60 (> 60)
[2020-09-09] MEDS: Insulin DETEMIR 100 UNIT/ML X5UNITS SUBQ SCH ×2 (10:50→20:20)
[2020-09-09] MEDS: Aspirin Enteric Coated 81 MG Tablet PO SCH (10:50)
[2020-09-09] MEDS ORDERED: Benzonatate 100 MG CAPSULE PO PRN (11:01)
[2020-09-10] MEDS: *HR* Enoxaparin 40 MG/0.4 ML SYRINGE SQ SCH (04:57)
[2020-09-10 06:07] LABS: Basophils # 0.1 K/mcL (0.0-0.2); Basophils % 1.1 %; Eosinophils # 0.2 K/mcL (0.0-0.6); Hematocrit 36.4 % (35.3-44.9); Hemoglobin 10.7 g/dL (11.5-15.4); Immature Granulocytes % 6.8 % (0-4); Lymphocytes # 1.7 K/mcL (0.6-4.6); Mean Corpuscular HGB Conc 29.4 g/dL (31.6-35.5); Mean Corpuscular Hemoglobin 22.8 pg (28.0-33.3); Mean Corpuscular Volume 77.4 fL (83.0-100.0); Mean Platelet Volume 9.5 fL (9.4-12.4); Monocytes # 0.7 K/mcL (0.0-1.3); Neutrophils # 4.3 K/mcL (1.6-8.9); Platelet Count 464 K/mcL (140-400); Red Cell Distribution Width 15.8 % (11.5-14.5); White Blood Count 7.4 K/mcL (4.3-11.1)
[2020-09-10 07:03] LABS: BUN/Creatinine Ratio 34 (6-26); Blood Urea Nitrogen 19 mg/dL (8-23); Calcium 8.6 mg/dL (8.6-10.3); Carbon Dioxide 28 mEq/L (23-29); Chloride 101 mEq/L (98-107); Glucose 186 mg/dL (70-105); Osmolality,Calculated 291 (280-300); Potassium 3.9 mEq/L (3.5-5.1); Sodium 137 mEq/L (136-145); eGFR For African Americans > 60 (> 60); eGFR For Non-African Americans > 60 (> 60)
[2020-09-10 07:41] VITALS: BP 128/71
[2020-09-10] MEDS: Insulin DETEMIR 100 UNIT/ML X5UNITS SUBQ SCH (07:47)
[2020-09-10] MEDS: Dexamethasone Sodium Phos/PF 10 MG/ML VIAL IVP SCH (07:48)
[2020-09-10] MEDS: Aspirin Enteric Coated 81 MG Tablet PO SCH (07:48)
[2020-09-10] MEDS: Insulin LISPRO 300 UNITS/3 ML VIAL SUBQ SCH ×2 (07:48→12:38)
[2020-09-10] MEDS: PARoxetine 20 MG TABLET PO SCH (07:48)
== END 2020-09-10 14:07 | disposition home health service (06) | DRG 177 ==
LOC: EMEROOARM 23:10 → CDU 23:10 → 2NENU 09-06 15:51
PROVIDERS: ADMIT Family Medicine; ATTEND Family Medicine